=== PATIENT | male | born 1935 | race Caucasian/White ===

== ENCOUNTER → 2016-07-04 | Outpatient (CLI) | payer MEDICARE ==
[~2016-07-04] MED LIST: MEDROL DOSEPAK 24 MG PO; MULTIVITAMINS1 EAC1 PO; SYNTHROID200 MCG PO
[2016-07-04 16:58] LABS: HEMOGLOBIN 13.9 gm/dl (14.0-17.5); RED BLOOD COUNT 4.28 M/UL (4.20-5.50); WHITE BLOOD COUNT 11.2 K/UL (4.5-11.0)
== END ==
LOC: LAB 16:24
PROVIDERS: Emergency Medicine
DX: R07.89 Other chest pain (principal); E03.8 Other specified hypothyroidism; E78.2 Mixed hyperlipidemia; F17.218 Nicotine dependence, cigarettes, with other nicotine-induced disorders; F52.21 Male erectile disorder; J20.9 Acute bronchitis, unspecified; J43.8 Other emphysema; J98.01 Acute bronchospasm; M21.612 Bunion of left foot; N18.3 Chronic kidney disease, stage 3 (moderate); R06.02 Shortness of breath; R23.8 Other skin changes; J44.9 Chronic obstructive pulmonary disease, unspecified
CPT/HCPCS: 36415; 71020; 80053; 84484; 85027; 85379

== ENCOUNTER 2016-07-26 16:39 | Observation (INO) | payer MEDICARE ==
[~2016-07-26] VITALS: Ht 177.8 cm; Wt 63.5 kg
[2016-07-26] MEDS ORDERED: SYNTHROID200 MCG PO (20:10)
[2016-07-26] MEDS ORDERED: MEDROL DOSEPAK 24 MG PO (20:10)
[2016-07-26] MEDS ORDERED: MULTIVITAMINS1 EAC1 PO (20:11)
[2016-07-27 07:03] LABS: HEMOGLOBIN 11.9 gm/dl (14.0-17.5); RED BLOOD COUNT 3.75 M/UL (4.20-5.50); WHITE BLOOD COUNT 10.7 K/UL (4.5-11.0)
[2016-07-27 07:23] LABS: BUN/CREATININE RATIO 23 (0-10)
== END 2016-07-27 19:20 | disposition home or self-care (01) ==
LOC: MED SURG 4 16:39
PROVIDERS: ADMIT Emergency Medicine
DX: M13.811 Other specified arthritis, right shoulder (principal); M13.812 Other specified arthritis, left shoulder; I31.9 Disease of pericardium, unspecified; J43.9 Emphysema, unspecified; E03.9 Hypothyroidism, unspecified; N40.0 Benign prostatic hyperplasia without lower urinary tract symptoms; E78.5 Hyperlipidemia, unspecified; N18.9 Chronic kidney disease, unspecified; G89.29 Other chronic pain; M54.5 Low back pain; F17.210 Nicotine dependence, cigarettes, uncomplicated; Z87.19 Personal history of other diseases of the digestive system
CPT/HCPCS: 36415; 71020; 78582; 80048; 82550; 82553; 83880; 84484; 85025; 85027; 85379; 93005; 94640; 94664; 96372; A9540; A9567; G0378; G0379; J1650; J7509

== ENCOUNTER → 2020-09-23 | Outpatient (CLI) | payer OTHER | LOC: RT 13:30 | DX: Z01.810 Encounter for preprocedural cardiovascular examination (principal) | CPT/HCPCS: 36415; 93005 ==

== ENCOUNTER → 2020-10-17 | Outpatient (CLI) | payer OTHER ==
[2020-10-17 13:02] LABS: HEMOGLOBIN 14.3 gm/dl (14.0-17.5); RED BLOOD COUNT 4.54 M/UL (4.20-5.50); WHITE BLOOD COUNT 7.7 K/UL (4.5-11.0)
== END ==
LOC: LAB 12:15
PROVIDERS: Physician Assistant Surgical
DX: C18.7 Malignant neoplasm of sigmoid colon (principal); R91.8 Other nonspecific abnormal finding of lung field
CPT/HCPCS: 36415; 71046; 82378; 84075; 85025

== ENCOUNTER → 2020-11-01 | Outpatient (CLI) | payer OTHER | LOC: LAB 15:04 | DX: C18.7 Malignant neoplasm of sigmoid colon (principal) | CPT/HCPCS: 82565; 84520 ==

== ENCOUNTER → 2020-11-02 | Outpatient (CLI) | payer OTHER | LOC: CT 15:30 | DX: C18.7 Malignant neoplasm of sigmoid colon (principal) | CPT/HCPCS: 71260; Q9965 ==

== ENCOUNTER 2021-06-03 08:40 | Inpatient (IN) | payer OTHER ==
[~2021-06-03] VITALS: Ht 177.8 cm; Wt 61.2 kg
[2021-06-03 09:41] LABS: HEMOGLOBIN 12.2 gm/dl (14.0-17.5); RED BLOOD COUNT 3.86 M/UL (4.20-5.50); WHITE BLOOD COUNT 7.1 K/UL (4.5-11.0)
[2021-06-04 03:28] LABS: HEMOGLOBIN 12.3 gm/dl (14.0-17.5); RED BLOOD COUNT 3.89 M/UL (4.20-5.50); WHITE BLOOD COUNT 8.6 K/UL (4.5-11.0)
[2021-06-05 03:19] LABS: HEMOGLOBIN 11.3 gm/dl (14.0-17.5); RED BLOOD COUNT 3.61 M/UL (4.20-5.50); WHITE BLOOD COUNT 7.7 K/UL (4.5-11.0)
[2021-06-06 03:04] LABS: HEMOGLOBIN 11.9 gm/dl (14.0-17.5); RED BLOOD COUNT 3.76 M/UL (4.20-5.50); WHITE BLOOD COUNT 7.1 K/UL (4.5-11.0)
== END 2021-06-06 13:32 | disposition home or self-care (01) | DRG 565 ==
LOC: ER1 08:40 → CDU 11:20 → M/S 11:20
PROVIDERS: Emergency Medicine; Physician Assistant; ADMIT Internal Medicine
PROC: 0HQ1XZZ Repair Face Skin, External Approach (ICD-10-PCS; 2021-06-03)
PROC: B24BZZ4 Ultrasonography of Heart with Aorta, Transesophageal (ICD-10-PCS; principal; 2021-06-04)
DX: T79.6XXA Traumatic ischemia of muscle, initial encounter (principal); N17.9 Acute kidney failure, unspecified; E44.1 Mild protein-calorie malnutrition; Z68.1 Body mass index [BMI] 19.9 or less, adult; Z20.822 Contact with and (suspected) exposure to COVID-19; R55 Syncope and collapse; I12.9 Hypertensive chronic kidney disease with stage 1 through stage 4 chronic kidney disease, or unspecified chronic kidney disease; R29.6 Repeated falls; W18.30XA Fall on same level, unspecified, initial encounter; S01.81XA Laceration without foreign body of other part of head, initial encounter; N18.30 Chronic kidney disease, stage 3 unspecified; S00.03XA Contusion of scalp, initial encounter; D63.1 Anemia in chronic kidney disease; F17.210 Nicotine dependence, cigarettes, uncomplicated; E03.9 Hypothyroidism, unspecified; Z91.14 Patient's other noncompliance with medication regimen; Z85.038 Personal history of other malignant neoplasm of large intestine; Z90.49 Acquired absence of other specified parts of digestive tract; Z82.3 Family history of stroke
CPT/HCPCS: ECHO; 36415; 70450; 71045; 72125; 73130; 80048; 80053; 81001; 82550; 82553; 83735; 83874; 84439; 84443; 84484; 85025; 90471; 90715; 93005; 93306; 99285; U0002

== ENCOUNTER → 2021-07-14 | Outpatient (CLI) | payer OTHER | LOC: KOH-I 15:30 | DX: H81.393 Other peripheral vertigo, bilateral (principal); R55 Syncope and collapse; W01.0XXD Fall on same level from slipping, tripping and stumbling without subsequent striking against object, subsequent encounter; I65.22 Occlusion and stenosis of left carotid artery | CPT/HCPCS: 93880 ==

== ENCOUNTER → 2021-09-20 | Outpatient (CLI) | payer OTHER | LOC: EMI 16:43 | DX: R55 Syncope and collapse (principal) | CPT/HCPCS: 70551 ==